=== PATIENT | male | born 1945 | race Caucasian/White ===

== ENCOUNTER 2017-01-16 19:56 | Emergency (ER) | payer OTHER ==
[~2017-01-16] VITALS: Ht 170.2 cm; Wt 60.0 kg
[2017-01-16 20:01] VITALS: BP 100/65; PULSE 67; RESP 16; TEMP 98.4; O2SAT 98
[2017-01-16 20:15] VITALS: BP 98/67; PULSE 60; RESP 18; O2SAT 96
[2017-01-16] MEDS ORDERED: DEPA250T2 PO (20:32)
[2017-01-16] MEDS ORDERED: SERT25TA83 PO (20:34)
[2017-01-16] MEDS ORDERED: TRAZ50TA12 PO (20:34)
[2017-01-16] MEDS ORDERED: LISI2.5T3 PO (20:34)
[2017-01-16] MEDS ORDERED: METO25TA3 PO (20:35)
[2017-01-16] MEDS ORDERED: ASPI81CH CHEW (20:36)
[2017-01-16] MEDS ORDERED: SODIUM CHLOR 0.9% 1000 ML INJ 1,000 ML IV SCH (20:41)
--- NOTE | 2017-01-16 20:43 | PD ---
HPI Chief Complaint: GI Complaint Time Seen by Provider: 20:34 Travel History International Travel<30 days: No Contact w/Intl Traveler<30days: No Traveled to known affect area: No History of Present Illness HPI The patient is a 71-year-old male that complains of pain slightly to the right of midline epigastrium for 2 days. He also has trouble with his balance for one week. He states he does have some vertigo. He smokes one pack a day and has not had a chest x-ray in over 2 years. He is followed by the [place]. He said he is only an occasional drinker and his last drink of alcohol was yesterday. He denies any nausea, vomiting, blood in the stool or fever. He states his pain level which is constant and aching is a 6/10. He does have a history of hypertension. He states he has not had a bowel movement in 3 days. He does have a mild nonproductive cough and smokes one pack a day. He states his father of stomach cancer. [facility] Past Medical History Diabetes: Yes Patient Takes Glucophage: No Hypertension: Yes Seizures: Yes Tetanus Vaccination: Unknown Influenza Vaccination: No ?: Not Past Surgical History Other Surgery: Yes (Several surgeries for argueta, inguinal hernia repair X 2 ) Social History Alcohol Use: Yes (Occasionally) Tobacco Use: Yes (1 ppd) Substance Use: No Allergies-Medications (Allergen,Severity, Reaction): Coded Allergies: No Known Allergies (Unverified , 01/16/17) Reported Meds & Prescriptions Reported Meds & Active Scripts Active Reported Aspirin 81 Mg Chew 81 Mg CHEW DAILY Metoprolol Tartrate 25 Mg Tab 25 Mg PO DAILY Sertraline (Sertraline HCl) 25 Mg Tab 25 Mg PO DAILY Lisinopril 2.5 Mg Tab 2.5 Mg PO DAILY Trazodone (Trazodone HCl) 50 Mg Tab 50 Mg PO HS Depakote DR (Divalproex Sodium) 250 Mg Tabdr 250 Mg PO DAILY Review of Systems Except as stated in HPI: all other systems reviewed are Neg Physical Exam Narrative GENERAL: The patient is alert, oriented 3 and slight apparent distress with his abdominal pain. His vital signs show blood pressure 100/65 but otherwise normal. The patient does appear to be dehydrated mildly. SKIN: Focused skin assessment warm/dry. HEAD: Atraumatic. Normocephalic. EYES: Pupils equal and round. No scleral icterus. No injection or drainage. ENT: No nasal bleeding or discharge. Mucous membranes pink and moist. NECK: Trachea midline. No JVD. CARDIOVASCULAR: Regular rate and rhythm. No murmur appreciated. RESPIRATORY: No accessory muscle use. Clear to auscultation. Breath sounds equal bilaterally. GASTROINTESTINAL: Abdomen soft, with tenderness to direct palpation slightly to the right of midline in the abdomen is nondistended. Hepatic and splenic margins not palpable. No guarding or rebound is present. MUSCULOSKELETAL: No obvious deformities. No clubbing. No cyanosis. No edema. NEUROLOGICAL: Awake and alert. No obvious cranial nerve deficits. Motor grossly within normal limits. Normal speech. PSYCHIATRIC: Appropriate mood and affect; insight and judgment normal. Data Data Last Documented VS Vital Signs Date Time Temp Pulse Resp B/P (MAP) Pulse Ox O2 Delivery O2 Flow Rate FiO2 01/16/17 21:00 99 Room Air 01/16/17 20:01 98.4 67 16 100/65 (77) Orders Orders Complete Blood Count With Diff (01/16/17 20:41) Comprehensive Metabolic Panel (01/16/17 20:41) Lipase (01/16/17 20:41) Urinalysis - C+S If Indicated (01/16/17 20:41) Iv Access Insert/Monitor (01/16/17 20:41) Ecg Monitoring (01/16/17 20:41) Oximetry (01/16/17 20:41) Pantoprazole Inj (Protonix Inj) (01/16/17 20:45) Sodium Chlor 0.9% 1000 Ml Inj (Ns 1000 M (01/16/17 20:41) Sodium Chloride 0.9% Flush (Ns Flush) (01/16/17 20:45) Famotidine Inj (Pepcid Inj) (01/16/17 20:45) Chest, Pa & Lat (01/16/17 20:43) Alcohol (Ethanol) (01/16/17 20:41) Labs Laboratory Tests Test 01/16/17 20:50 White Blood Count 5.5 TH/MM3 Red Blood Count 4.52 MIL/MM3 Hemoglobin 14.9 GM/DL Hematocrit 43.7 % Mean Corpuscular Volume 96.7 FL Mean Corpuscular Hemoglobin 33.1 PG Mean Corpuscular Hemoglobin Concent 34.2 % Red Cell Distribution Width 13.4 % Platelet Count 85 TH/MM3 Mean Platelet Volume 8.4 FL Neutrophils (%) (Auto) 44.5 % Lymphocytes (%) (Auto) 45.0 % Monocytes (%) (Auto) 9.3 % Eosinophils (%) (Auto) 0.1 % Basophils (%) (Auto) 1.1 % Neutrophils # (Auto) 2.5 TH/MM3 Lymphocytes # (Auto) 2.4 TH/MM3 Monocytes # (Auto) 0.5 TH/MM3 Eosinophils # (Auto) 0.0 TH/MM3 Basophils # (Auto) 0.1 TH/MM3 CBC Comment AUTO DIFF Differential Comment AUTO DIFF CONFIRMED Platelet Estimate LOW Platelet Morphology Comment NORMAL Red Cell Morphology Comment NORMAL Blood Urea Nitrogen 16 MG/DL Creatinine 0.76 MG/DL Random Glucose 89 MG/DL Total Protein 7.6 GM/DL Albumin 3.3 GM/DL Calcium Level 8.8 MG/DL Alkaline Phosphatase 68 U/L Aspartate Amino Transf (AST/SGOT) 48 U/L Alanine Aminotransferase (ALT/SGPT) 58 U/L Total Bilirubin 0.6 MG/DL Sodium Level 136 MEQ/L Potassium Level 3.9 MEQ/L Chloride Level 100 MEQ/L Carbon Dioxide Level 29.3 MEQ/L Anion Gap 7 MEQ/L Estimat Glomerular Filtration Rate 102 ML/MIN Lipase 114 U/L Ethyl Alcohol Level LESS THAN 3 MG/DL MDM Medical Decision Making Medical Screen Exam Complete: Yes Emergency Medical Condition: Yes Medical Record Reviewed: Yes Interpretation(s) The chest x-ray shows hyperinflation of the lung suggestive of COPD. There is no focal infiltrate or pulmonary vascular congestion. Mild degenerative changes are noted throughout the thoracic spine. The CBC is normal except for a platelet count of 85,000. The complete metabolic profile shows an albumin of 3.3, GOT of 48 but is otherwise normal. The alcohol level is essentially 0 and the lipase is normal. Differential Diagnosis Ulcer pain, pancreatitis, reflux esophagitis, abdominal pain etiology undetermined, bronchitis, pneumonia, cholelithiasis with colic, cholecystitis, neoplasm of stomach Narrative Course As we discussed, you need to see a podiatric surgeon. This may be an ulcer or may be a tumor. The patient does have epigastric pain etiology undetermined. He does feel better now with the famotidine. He will be given Zantac and Prilosec prescriptions. [facility], hopefully upper endoscopy. He also needs to quit smoking. Diagnosis Primary Impression: Abdominal pain of unknown etiology Additional Instructions: As we discussed, you need to see a podiatric surgeon for upper endoscopy. [facility], hopefully they can accomplish this. The Prilosec is one tablet daily and the Zantac is one tablet twice daily. Both of these are measures to cut down on the stomach acid. You can take the baby aspirin that the [facility] once you to take but avoid nonsteroidal anti-inflammatory drugs and alcohol. Med/Other Pt SpecificInfo: Prescription(s) given Scripts Omeprazole (Omeprazole) 20 Mg Tab 20 MG PO DAILY, #30 TAB 0 Refills Prov: Michael Main MD 01/16/17 Ranitidine (Zantac) 150 Mg Tab 150 MG PO BID for Reduce Stomach Acid, #60 TAB 0 Refills Prov: Michael Main MD 01/16/17 Disposition: 01 DISCHARGE HOME Condition: Stable Michael Main MD Jan 16, 2017 20:43
[2017-01-16] MEDS ORDERED: SODIUM CHLORIDE 0.9% FLUSH 10 ML FLUSH IV FLUSH PRN (20:45)
[2017-01-16] MEDS ORDERED: PANTOPRAZOLE SODIUM 40 MG VIAL IVP ONE (20:45)
[2017-01-16] MEDS ORDERED: FAMOTIDINE 20 MG/2 ML VIAL IV PUSH ONE (20:45)
[2017-01-16 20:57] LABS: AUTOMATED NEUTROPHIL # 2.5 TH/MM3 (1.8-7.7); BASOPHIL # 0.1 TH/MM3 (0-0.2); BASOPHIL % 1.1 % (0.0-2.0); EOSINOPHIL % 0.1 % (0.0-4.0); HEMATOCRIT 43.7 % (39.0-51.0); HEMO FLAGS AUTO DIFF; LYMPHOCYTE # 2.4 TH/MM3 (1.0-4.8); MEAN CELL VOLUME 96.7 FL (80.0-100.0); MEAN CORPUSCULAR HEMOGLOBIN 33.1 PG (27.0-34.0); MEAN CORPUSCULAR HGB CONC 34.2 % (32.0-36.0); MONO % 9.3 % (0.0-8.0); NEUT % 44.5 % (16.0-70.0); PLATELET COUNT 85 TH/MM3 (150-450); RED BLOOD COUNT 4.52 MIL/MM3 (4.50-5.90); RED CELL DISTRIBUTION WIDTH 13.4 % (11.6-17.2); WHITE BLOOD COUNT 5.5 TH/MM3 (4.0-11.0)
[2017-01-16 21:00] VITALS: O2SAT 99
[2017-01-16 21:04] LABS: CHLORIDE 100 MEQ/L (98-107); SODIUM (NA) 136 MEQ/L (136-145)
[2017-01-16 21:08] LABS: ANION GAP 7 MEQ/L (5-15); BICARBONATE 29.3 MEQ/L (21.0-32.0); BLOOD UREA NITROGEN 16 MG/DL (7-18)
[2017-01-16 21:11] LABS: ALT (GPT) 58 U/L (12-78); AST (GOT) 48 U/L (15-37); GLOMERULAR FILTRATION RATE 102 ML/MIN (>89)
[2017-01-16 21:13] LABS: PLATELET ESTIMATE SMEAR LOW (NORMAL); PLATELET MORPHOLOGY NORMAL (NORMAL); SCAN/DIFF AUTO DIFF CONFIRMED; TOTAL BILIRUBIN ADULT 0.6 MG/DL (0.2-1.0)
[2017-01-16 21:14] LABS: ALKALINE PHOSPHATASE 68 U/L (45-117)
[2017-01-16 21:20] VITALS: BP 106/66; PULSE 48; RESP 18; O2SAT 97
[2017-01-16 21:24] LABS: ALCOHOL LESS THAN 3 MG/DL (0-5); POTASSIUM 3.9 MEQ/L (3.5-5.1)
--- NOTE | 2017-01-16 21:27 | RADRPT ---
EXAM DATE/TIME: 01/16/2017 20:53 [facility] COMPARISON: No previous studies available for comparison. INDICATIONS : Right sided chest pain for two days with no known trauma MEDICAL HISTORY : None. SURGICAL HISTORY : None. ENCOUNTER: Initial ACUITY: 2 days PAIN SCORE: 5/10 LOCATION: Right chest FINDINGS: Hyperinflation of the lungs is noted suggestive of COPD. There is no acute focal pulmonary infiltrat e or pulmonary vascular congestion. The heart is normal. Mild degenerative changes are noted throug hout the thoracic spine. CONCLUSION: 1. Hyperinflation of the lungs suggestive of COPD. 2. No acute focal pulmonary infiltrate or pulmonary vascular congestion. 3. Mild degenerative changes throughout the thoracic spine. Vic Ribeiro MD on January 16, 2017 at 21:23 Board Certified Radiologist. This report was verified electronically.
[2017-01-16 21:35] LABS: BLOOD, URINE NEG (NEG); GLUCOSE,URINE NEG (NEG); KETONE, URINE TRACE mg/dL (NEG); NITRITE,URINE NEG (NEG)
[2017-01-16 21:41] LABS: COMMENT (UR) CULT NOT INDICATED; COMMENT2 (UR) MUCOUS PRESENT; CULTURE IF INDICATED CULT NOT INDICATED; RBC, URINE 0-2 /hpf (0-3); SQUAMOUS EPITHELIAL CELL URINE 0-5 /hpf (0-5); URINE COLOR AMBER (YELLW/STRAW); WBC, URINE 0-2 /hpf (0-5)
[2017-01-16] MEDS ORDERED: ZANT150T2 PO (21:46)
[2017-01-16] MEDS ORDERED: OMEP20TA PO (21:46)
[2017-01-16 22:35] VITALS: BP 87/58; PULSE 50; RESP 18; TEMP 98.2; O2SAT 96
[2017-01-16 22:55] VITALS: BP 99/62; PULSE 50; RESP 18; O2SAT 99
== END 2017-01-16 23:02 | disposition home or self-care (01) ==
LOC: PHED 19:56
DX: R10.13 Epigastric pain (principal); E86.0 Dehydration; R42 Dizziness and giddiness; R05 Cough; I10 Essential (primary) hypertension; E11.9 Type 2 diabetes mellitus without complications; F17.200 Nicotine dependence, unspecified, uncomplicated; Z79.899 Other long term (current) drug therapy; Z86.69 Personal history of other diseases of the nervous system and sense organs
CPT/HCPCS: 71020; 80053; 80307; 81001; 83690; 85025; 96361; 96374; 96375; 99284; C9113; J7030